=== PATIENT | male | born 1965 | race Caucasian/White ===

== ENCOUNTER 2016-10-04 09:54 | Emergency (ER) | payer OTHER ==
[~2016-10-04] VITALS: Ht 182.9 cm; Wt 78.0 kg
[~2016-10-04 09:54] MED LIST: FLEXERIL10 MG PO; GOOD SENSE IBU200 MG PO; MOBIC 15MG15 MG PO; VICODIN5-300 PO
--- NOTE | 2016-10-04 10:49 | ED MVC/FALL/TRAUMA COMPLAINT ---
History of Present Illness General Chief Complaint: Fall Stated Complaint: FALL 2 WEEKS AGO, R SIDED RIB PAIN Source: patient, old records Exam Limitations: no limitations Vital Signs & Intake/Output Vital Signs & Intake/Output Vital Signs Date Time Temp Pulse Resp B/P Pulse O2 O2 Flow FiO2 Ox Delivery Rate 10/04 1146 96.4 69 16 133/84 97 Room Air 10/04 1006 97.6 84 20 128/86 98 Room Air ED Intake and Output 10/05 0000 10/04 1200 Intake Total Output Total Balance Patient 172 lb Weight Allergies Coded Allergies: NO KNOWN ALLERGIES (10/08/15) Reconcile Medications Ascorbic Acid (Vitamin C) (Unknown Strength) CAPSULE.ER (Unknown Dose) PO DAILY SUPPLEMENT (Reported) Ibuprofen 200 MG TAB 2 TAB PO ONCE PAIN (Reported) Oxycodone HCl/Acetaminophen (Percocet 5-325 MG Tablet) 5 MG-325 MG TABLET 1 TAB PO BID PRN breakthrough pain Triage Note: PT TO ED C/O RIGHT SIDED RIB PAIN. STATES HE FELL OFF A LADDER 2.5 WEEKS AGO. DENIES HEADSTRIKE. HAS BEEN TAKING MOTRIN WITH NO RELIEF. REFUSING MEDS IN TRIAGE. NO SOB OR DIFF BREATHING NOTED, RA SATS 98%. Triage Nurses Notes Reviewed? yes Onset: Abrupt Duration: week(s): (2.5), constant Timing: recent history Severity: moderate Severity Numbers: 6 Injuries/Fall Location: chest Method of Injury: fall Loss of Consciousness: no loss of consciousness Modifying Factors: Worsens With: breathing, movement, palpation. Associated Symptoms: denies HPI: 51-year-old male presents to emergency room complaining of right lateral rib pain for the past 2 and half weeks after he fell from approximately 3-4 feet in the air while taking down decorations onto his right side he denies hitting his head there is no loss of consciousness no neck or back pain. He states pain is worse with deep inspiration denies cough denies hemoptysis. He is been taking Advil without improvement. He denies any arm or leg pain. Has not sought care for the symptoms until today no abdominal pain nausea or vomiting (DEWEY LARIOS) Past History Travel History Traveled to [place] past 21 day No Medical History Any Pertinent Medical History? see below for history Neurological: NONE EENT: NONE Cardiovascular: NONE Respiratory: NONE Gastrointestinal: NONE Hepatic: NONE Renal: NONE Musculoskeletal: CHRONIC BACK PAIN Psychiatric: NONE Endocrine: NONE Blood Disorders: NONE Cancer(s): NONE Surgical History Surgical History: low back surgery Psychosocial History What is your primary language Mozambican Tobacco Use: Current Not Daily ETOH Use: occasional use Illicit Drug Use: denies illicit drug use Family History Hx Contributory? No (DEWEY LARIOS) Review of Systems Review of Systems Constitutional: Reports: see HPI. All Other Systems: Reviewed and Negative Comments Review of systems: See HPI, All other systems negative. Constitutional, no chills no fever, no malaise HEENT: No visual changes no sore throat no congestion Cardiovascular: No chest pain , no palpitation Skin, no jaundice no rashes, no change in skin Respiratory: No dyspnea no cough no sputum GI: No nausea no vomiting, no diarrhea, : No dysuria Muscle skeletal: No joint pain, no back pain, no neck pain, Neurologic: No numbness no headache Psych: No stress Heme/endocrine: No bruising no bleeding no polyuria Immunology: No lymphadenopathy (DEWEY LARIOS) Physical Exam Physical Exam General Appearance: well developed/nourished, alert, awake Comments: Well-developed well-nourished patient in no apparent distress. HEENT: Atraumatic, extraocular motion intact Neck: Supple, FROM, nontender Back: FROM, Nontender Cardiovascular: Regular rate and rhythms no murmurs rubs Respiratory: Tender to palpation over the anterior and lateral right ribs there is no ecchymosis or signs of trauma.There were no bony deformities, no asymmetry. No respiratory distress. Patient speaking in full complete sentences. Breath sounds clear to auscultation bilaterally: NO W/R/R Abdomen: Soft nontender no palpable hepatomegaly no rebound no guarding Extremities: full range of motion Neuro: Alert and oriented x3 Skin: Warm & dry;No appreciable rash on exposed skin Psych: Mood affect normal, normal memory normal judgment. Core Measures ACS in differential dx? No Severe Sepsis Present: No Septic Shock Present: No (DEWEY LARIOS) Progress Differential Diagnosis: abd injury, C/T/L spine injury, ext injury, ICH, pelvis injury, spinal cord injury Plan of Care: Orders Procedure Date/time Status XRY-RIBS UNILATERAL-RIGHT 10/04 1053 Active X-rays ordered patient declining any debridement offered I discussed with the patient at length all of their results, need for close follow up with their primary care physician. This week. I answered all of their questions, they feel comfortable with the plan and follow-up care. I discussed the medications that they will receive with the patient. I gave them signs and symptoms that could indicate an adverse reaction. I have advised them to limit their activities until they can see how they respond to the medication. (DEWEY LARIOS) Diagnostic Imaging: Viewed by Me: Radiology Read. Discussed w/RAD: Radiology Read. Radiology Impression: PATIENT: LEELA MENG PRESENT AGE: 51 PATIENT ACCOUNT NO: [id number] : 66 LOCATION: [facility] ORDERING PHYSICIAN: DEWEY KEN SERVICE DATE: 10/04/16 EXAM TYPE: RAD - XRY- RIBS UNILATERAL-RIGHT EXAMINATION: XR RIBS, RIGHT CLINICAL INFORMATION: Status post fall. Right rib pain. COMPARISON: Chest x-ray of 11/18/08, 11/15/08. TECHNIQUE : PA view of the chest and 3 dedicated views of the right ribs are acquired. FINDINGS: The lungs are normally and symmetrically expanded. The lungs are clear. No pleural effusions or pneumothorax. No right rib fracture is noted at this time. No acute abnormality of the remainder of the visualized osseous structures. Upper abdomen is unremarkable. IMPRESSION: 1. No evidence of fracture fracture at this time. 2. No acute pulmonary process, pleural effusions or pneumothorax. DICTATED BY: SAILAJA JACOBO MD DATE/TIME DICTATED:10/04/161126 INBOUND SALES ADVISOR:ITZ DATE/TIME TRANSCRIBED:10/04/161126 CONFIDENTIAL, DO NOT COPY WITHOUT APPROPRIATE AUTHORIZATION. <Electronically signed in Other Vendor System> SIGNED BY: SAILAJA JACOBO MD 10/04/16 1136 (DEWEY LARIOS) Departure Departure Time of Disposition: 1149 Disposition: HOME OR SELF CARE Condition: Stable Clinical Impression Primary Impression: Contusion of rib on right side Referrals: PATIENT HAS NO PRIMARY CARE DR (PCP/Family) Additional Instructions: Percocet for breakthrough pain only. This prescription was sent here pharmacy. Rest ice. Follow-up with your primary care physician this week. Return to the emergency room at any time sooner if you have worsening of your symptoms or any other concerns. you were prescribed a narcotic use caution as this medication is highly addictive and will make you drowsy use for breakthrough pain only. No driving, drinking alcohol or operating machinary when taking. Departure Forms: Customer Survey General Discharge Information Prescriptions: Current Visit Scripts Oxycodone HCl/Acetaminophen (Percocet 5-325 MG Tablet) 1 TAB PO BID PRN breakthrough pain #10 TAB (DEWEY LARIOS) PA/RE ETCHER Co-Sign Statement Statement: ED Attending supervision documentation- [] I saw and evaluated the patient. I have also reviewed all the pertinent lab results and diagnostic results. I agree with the findings and the plan of care as documented in the PA's/RE ETCHER's documentation. [X] I have reviewed the ED Record and agree with the PA's/RE ETCHER's documentation. [] Additions or exceptions (if any) to the PAs/RE ETCHER's note and plan are summarized below: [] (KATH MERCADO,JAY)
[2016-10-04] MEDS ORDERED: VITAMIN C500 M7 PO (11:15)
--- NOTE | 2016-10-04 11:36 | RADIOLOGY REPORT ---
EXAMINATION: XR RIBS, RIGHT CLINICAL INFORMATION: Status post fall. Right rib pain. COMPARISON: Chest x-ray of 11/18/08, 11/15/08. TECHNIQUE: PA view of the chest and 3 dedicated views of the right ribs are acquired. FINDINGS: The lungs are normally and symmetrically expanded. The lungs are clear. No pleural effusions or pneumothorax. No right rib fracture is noted at this time. No acute abnormality of the remainder of the visualized osseous structures. Upper abdomen is unremarkable. IMPRESSION: 1. No evidence of fracture fracture at this time. 2. No acute pulmonary process, pleural effusions or pneumothorax.
[2016-10-04 11:46] VITALS: BP 133/84
[2016-10-04] MEDS ORDERED: PERCOCET 5-3251 EACH PO (11:50)
== END 2016-10-04 11:54 ==
LOC: ERH 09:54
DX: S20.211A Contusion of right front wall of thorax, initial encounter (principal); R07.81 Pleurodynia; W17.89XA Other fall from one level to another, initial encounter; Y93.89 Activity, other specified
CPT/HCPCS: 71100-RT

== ENCOUNTER 2017-03-01 12:32 | Emergency (ER) | payer OTHER ==
[~2017-03-01 12:32] MED LIST changes: +PERCOCET 5-3251 EACH PO; +VITAMIN C500 M7 PO
[2017-03-01 12:57] VITALS: BP 136/85
--- NOTE | 2017-03-01 13:19 | ED NECK/BACK PAIN COMPLAINT ---
History of Present Illness General Chief Complaint: Low Back Pain/Injury Stated Complaint: CHRONIC BACK PAIN Source: patient Exam Limitations: no limitations Vital Signs & Intake/Output Vital Signs & Intake/Output Vital Signs Date Time Temp Pulse Resp B/P B/P Pulse O2 O2 Flow FiO2 Mean Ox Delivery Rate 03/01 1257 97.3 91 20 136/85 97 Room Air Allergies Coded Allergies: NO KNOWN ALLERGIES (10/08/15) Reconcile Medications Ascorbic Acid (Vitamin C) (Unknown Strength) CAPSULE.ER (Unknown Dose) PO DAILY SUPPLEMENT (Reported) Ibuprofen 200 MG TAB 2 TAB PO ONCE PAIN (Reported) Ibuprofen 800 MG TABLET 1 TAB PO TID pain Methylprednisolone. (Medrol) 4 MG TAB.DS.PK 1 DP PO AD sciatica 6 on day 1 then reduce by one tablet daily until gone Oxycodone HCl/Acetaminophen (Percocet 5-325 MG Tablet) 5 MG-325 MG TABLET 1-2 TAB PO Q6P PRN pain Oxycodone HCl/Acetaminophen (Percocet 5-325 MG Tablet) 5 MG-325 MG TABLET 1 TAB PO BID PRN breakthrough pain Triage Note: PT PRESENTS TO ER FOR CHORNIC BACK PAIN. PT STATES HE IS AWAITING HIS REFERAL TO [facility] BUT IN THE MEANTIME HAS NOT HEARD BACK. PT STATES PAIN IS GETTING WORSE Triage Nurses Notes Reviewed? yes Onset: Abrupt Timing: recent history Quality/Severity: moderate, severe Location: lumbar spine Radiation: upper legs, lower legs Method of Injury: unknown Loss of Consciousness: no loss of consciousness HPI: 51-year-old male comes into emergency room with complaints of exacerbation of chronic low back pain. Patient reports that he has had back pain for many years. Patient has been diagnosed with sciatica in the past. Patient has had injections done to his lower back in the past. Patient reports that the past couple days she's been having pain shooting down bilateral legs. Denies any urinary bowel dysfunction. Denies any abdominal pain. Denies any recent falls or trauma. Denies any other associated symptoms. (MARIA ISABEL TALAVERA) Past History Travel History Traveled to [place] past 21 day No Medical History Any Pertinent Medical History? see below for history Neurological: NONE EENT: NONE Cardiovascular: NONE Respiratory: NONE Gastrointestinal: NONE Hepatic: NONE Renal: NONE Musculoskeletal: CHRONIC BACK PAIN Psychiatric: NONE Endocrine: NONE Blood Disorders: NONE Cancer(s): NONE Surgical History Surgical History: low back surgery Psychosocial History What is your primary language Senegalese Tobacco Use: Current Daily Use Daily Tobacco Use Amount/Type: =< 4 Cigarettes daily Family History Hx Contributory? No (MARIA ISABEL TALAVERA) Review of Systems Review of Systems Constitutional: Reports: no symptoms. Eyes: Reports: no symptoms. Ears, Nose, Throat, Mouth: Reports: no symptoms. Respiratory: Reports: no symptoms. Cardiovascular: Reports: no symptoms. Gastrointestinal/Abdominal: Reports: no symptoms. Musculoskeletal: Reports: see HPI. Skin: Reports: no symptoms. Neurological/Psychological: Reports: no symptoms. All Other Systems: Reviewed and Negative (MARIA ISABEL TALAVERA) Physical Exam Physical Exam General Appearance: well developed/nourished, mild distress Head: atraumatic Eyes: Bilateral: normal appearance. Ears, Nose, Throat, Mouth: hearing grossly normal, moist mucous membrane Neck: normal inspection Respiratory: no respiratory distress Cardiovascular: regular rate/rhythm Back: normal inspection, paraspinal tenderness bilaterally low back Extremities: normal range of motion Motor: Deficit L4 Right: No Deficit L4 Left: No Deficit L5 Right: No Deficit L5 Left: No Deficit S1 Right: No Deficit S1 Right: No Neurologic/Psych: awake, alert, oriented x 3, normal mood/affect Skin: intact, normal color, warm/dry (MARIA ISABEL TALAVERA) Progress Differential Diagnosis: aortic dissection, carotid dissection, cauda equina syn, herniated disc, myofascial strain, pyelo/UTI, sciatica, spinal cord inj, thoracic outlet syn Plan of Care: 03/01/2017 1:49:56 PM Patient clinically looks well. Patient is in no apparent distress. Patient resting comfortably in room. There is no evidence of any acute weakness on exam. History of chronic back pain. No concern for cauda equina. Strength and motor intact. Patient will follow up as needed as outpatient. No midline tenderness in low back. I do not feel x-ray is necessary at this time. (MARIA ISABEL TALAVERA) Departure Departure Disposition: HOME OR SELF CARE Condition: Stable Clinical Impression Primary Impression: Acute exacerbation of chronic low back pain Secondary Impressions: Sciatica Referrals: ASHLEY LOGAN DO (PCP/Family) Additional Instructions: Take Medrol Dosepak, Percocet, and ibuprofen as prescribed. Follow-up with your primary care doctor for pain management referral. Return if any other concerns worsening symptoms. Please go over all results of today's visit with your primary care doctor. Contact your primary care doctor to let them know you were here in the emergency room. There may be nonspecific findings which may not be related to your visit today here in the emergency room but may require further evaluation and chronic monitoring by your primary care doctor. If you had a laceration today the chance of foreign body always remains. You should follow-up with your primary care doctor for recheck in 3-5 days for a wound check. If you had an x-ray done there is a chance that a fracture could have been missed on initial read and you should follow-up with your primary care doctor for repeat x-rays if symptoms persist. If your blood pressure was elevated here in the emergency room please have rechecked by her primary care doctor within the next 48 hours by your primary care doctor. If you were prescribed a narcotic here in the emergency room or any type of controlled substances you're not allowed to drive while taking this medication or operate any type of heavy machinery. Narcotics can make you feel lightheaded dizziness nausea and can cause constipation. You may need to berry picker a stool softener. Thank you for choosing [facility] emergency room. Please return to the emergency room immediately if you have any other concerns worsening of symptoms. Departure Forms: Customer Survey General Discharge Information Prescriptions: Current Visit Scripts Oxycodone HCl/Acetaminophen (Percocet 5-325 MG Tablet) 1-2 TAB PO Q6P PRN pain #20 TAB Methylprednisolone. (Medrol) 1 DP PO AD #1 DP 6 on day 1 then reduce by one tablet daily until gone Ibuprofen 1 TAB PO TID #30 TAB (MARIA ISABEL TALAVERA) PA/TRAIN ATTENDANT Co-Sign Statement Statement: ED Attending supervision documentation- [] I saw and evaluated the patient. I have also reviewed all the pertinent lab results and diagnostic results. I agree with the findings and the plan of care as documented in the PA's/TRAIN ATTENDANT's documentation. [X] I have reviewed the ED Record and agree with the PA's/TRAIN ATTENDANT's documentation. [] Additions or exceptions (if any) to the PAs/TRAIN ATTENDANT's note and plan are summarized below: [] (KATH MERCADO,JAY)
[2017-03-01] MEDS ORDERED: IBUPROFEN800 M1 PO (13:21)
[2017-03-01] MEDS ORDERED: MEDROL4 M2 PO (13:21)
[2017-03-01] MEDS ORDERED: PERCOCET 5-3251 EACH PO (13:21)
== END 2017-03-01 13:39 ==
LOC: ERH 12:32
DX: G89.29 Other chronic pain (principal); M54.41 Lumbago with sciatica, right side; M54.42 Lumbago with sciatica, left side
CPT/HCPCS: 96372; J1885